=== PATIENT | female | born 1975 | race Caucasian/White ===

== ENCOUNTER 2020-10-20 01:16 | Emergency (ER) | payer MEDICARE, OTHER ==
[~2020-10-20] VITALS: Ht 162.6 cm; Wt 54.4 kg
[2020-10-20 01:32] LABS: URINE BILIRUBIN NEGATIVE (Negative); URINE BLOOD NEGATIVE (Negative); URINE CLARITY CLEAR; URINE COLOR YELLOW; URINE GLUCOSE-RANDOM NEGATIVE (Negative); URINE KETONES NEGATIVE (Negative); URINE LEUKOCYTES NEGATIVE (Negative); URINE NITRITE NEGATIVE (Negative); URINE PROTEIN NEGATIVE (Negative); URINE SPECIFIC GRAVITY <= 1.005 (1.005-1.030); URINE UROBILINOGEN 0.2 E.U./dl (0.2-1.0)
[2020-10-20] MEDS ORDERED: LISINOPRIL20 MG (01:32)
[2020-10-20 01:41] LABS: AMP/METHAMP Negative (Negative); BARBITURATES Negative (Negative); BENZODIAZEPINES Negative (Negative); COCAINE Negative (Negative); METHADONE Negative (Negative); OPIATES Negative (Negative); PCP Negative (Negative); THC Negative (Negative)
[2020-10-20 01:49] LABS: HEMATOCRIT 42.5 % (37.0-47.0); HEMOGLOBIN 14.3 gm/dL (12.0-15.0); MCH 29.9 pg (26.0-34.0); MCHC 33.6 g/dL (28.0-37.0); MPV 8.8 fl. (7.2-11.1); RBC 4.77 mil/uL (4.20-5.00); RDW-CV 13.4 % (10.5-14.5); WBC 9.2 thou/uL (4.0-11.0)
[2020-10-20 01:56] LABS: CALCIUM 9.4 mg/dL (8.5-10.1); CREATININE 0.8 mg/dL (0.6-1.3); POTASSIUM 3.2 mmol/L (3.5-5.1)
[2020-10-20 02:01] LABS: ALBUMIN 4.1 g/dL (3.4-5.0); TOTAL BILIRUBIN 0.2 mg/dL (<0.1-1.0); TOTAL PROTEIN 7.6 g/dL (6.4-8.2)
[2020-10-20 02:06] LABS: ACETAMINOPHEN < 2 ug/mL (10-30); ALCOHOL 218 mg/dL (<10)
--- NOTE | 2020-10-20 10:56 | EKG ---
[place] [address] ELECTROCARDIOGRAM REPORT Name: ANDRES DELGADO Room: [facility]#: [id number] Admission: 10/20/20 Attend Phys: Discharge: 10/20/20 Date of : 75 Date of Service: 10/20/20 0136 Report #: [id number] THIS REPORT FOR: //name// [facility] ED Test Date: 2020-10-20 Test Time: 01:36:07 Pat Name: ANDRES DELGADO Department: Room: Gender: [place] Man: : 1975 Requested By: Brionna York Order Number: [id number] MD: Axel Monroe Measurements Intervals [place] Rate: 83 P: 72 MA: 161 QRS: 98 QRSD: 111 T: 74 QT: 381 QTc: 448 Interpretive Statements Sinus rhythm Probable left atrial enlargement Minor IVCD of the right type No previous ECG available for comparison Electronically Signed On 10-20-2020 10:55:52 CDT by Axel Monroe [email or web address] <ELECTRONICALLY SIGNED> By: Axel Monroe MD, [facility] 10/20/20 1055 5 5 Axel Monroe MD, FAC /EPI
== END 2020-10-20 09:07 ==
LOC: M.ERS 01:16
PROVIDERS: Personal Emergency Response Attendant
DX: T45.0X2A Poisoning by antiallergic and antiemetic drugs, intentional self-harm, initial encounter (principal); F10.129 Alcohol abuse with intoxication, unspecified; Y90.7 Blood alcohol level of 200-239 mg/100 ml; F32.9 Major depressive disorder, single episode, unspecified; Z20.822 Contact with and (suspected) exposure to COVID-19; I10 Essential (primary) hypertension; Z88.0 Allergy status to penicillin; Y92.89 Other specified places as the place of occurrence of the external cause